=== PATIENT | male | born 1960 | race Caucasian/White ===

== ENCOUNTER 2017-05-21 09:58 | Emergency (ER) | payer BC, MEDICAID ==
--- NOTE | 2017-05-21 10:19 | Emergency Department Record ---
History of Present Illness - General Chief Complaint: Shortness of breath Stated Complaint: SHORT OF BREATH Time Seen by Provider: 05/21/17 10:19 Source: Patient Mode of Arrival: Ambulatory Limitations: No limitations - History of Present Illness Initial Comments: The patient is here due to CORINNA, HENAO and a dry cough for about 3 days. He denies any sputum, fever, chills, but has been quite weak lately. The patient states he did have about an hour of vague chest pain about 3 days ago while resting but it was not associated with any new SOB, CORINNA, sweating, or nausea. He denies any heart issues and has had no CP with exertion. The patient has COPD and does use 3 inhallers at home. MD Complaint: Cough, Shortness of breath Onset/Timin -: Days(s) Improves With: Bronchodilators Worsens With: Exertion Known History Of: COPD Treatments Prior to Arrival: Bronchodilator Treatment Prior to Arrival Comment:: inhalers - Related Data Home Oxygen Therapy: No Home Medications Medication Instructions Recorded Confirmed Last Taken Albuterol Sulfate [Ventolin Hfa] 2 puff INH QID PRN 05/21/17 05/21/17 05/21/17 Fluticasone/Salmeterol [Advair 1 each PO DAILY 05/21/17 05/21/17 05/21/17 250-50 Diskus] Ranitidine HCl 150 mg PO BID 05/21/17 05/21/17 05/21/17 Tiotropium [place] [Spiriva] 1 each INH DAILY 05/21/17 05/21/17 05/21/17 Previous Rx's Medication Instructions Recorded Doxycycline Monohydrate [Mondoxyne 100 mg PO BID #20 capsule 05/21/17 Nl] Prednisone [Prednisone 20Mg] 40 mg PO DAILY #8 tab 05/21/17 Allergies Allergy/AdvReac Type Severity Reaction Status Date / Time Sulfa (Sulfonamide Allergy PT UNSURE Verified 05/21/17 10:05 Antibiotics) OF REACTION Travel Screening - Travel/Exposure Within Last 30 Days Have you traveled within the last 30 days?: No - Travel/Exposure Within Last Year Have you traveled outside the [place] in the last year?: No - Additonal Travel Details Have you been exposed to anyone with a communicable illness?: No - Travel Symptoms Symptom Screening: None Review of Systems Constitutional: Reports: Malaise. Denies: Chills, Fever Eyes: Denies: Eye discharge ENT: Reports: Congestion Respiratory: Reports: Cough, Dyspnea. Denies: Hemoptysis, Stridor, Wheezes Cardiovascular: Denies: Arrhythmia, Chest pain Endocrine: Reports: Fatigue Gastrointestinal: Denies: Diarrhea, Vomiting Genitourinary: Denies: Dysuria Musculoskeletal: Denies: Arthralgia Past Medical History - SOCIAL HISTORY Smoking Status: Former smoker Alcohol Use: Occasional Drug Use: None - RESPIRATORY Hx Respiratory Disorders: Yes Hx COPD: Yes - CARDIOVASCULAR Hx Cardio Disorders: No - NEURO Hx Neuro Disorders: No - GI Hx GI Disorders: Yes Hx Reflux: Yes - Hx Genitourinary Disorders: No - ENDOCRINE Hx Endocrine Disorders: No - MUSCULOSKELETAL Hx Musculoskeletal Disorders: No - PSYCH Hx Psych Problems: No - HEMATOLOGY/ONCOLOGY Hx Hematology/Oncology Disorders: No Family Medical History Any Significant Family History?: No Physical Exam - General General Appearance: Alert, Oriented x3, Cooperative, No acute distress - Head Head exam: Atraumatic, Normocephalic, Normal inspection - Eye Eye exam: Normal appearance, PERRL - ENT Throat exam: Normal inspection. negative: Tonsillar erythema, Tonsillar exudate - Neck Neck exam: Normal inspection, Full ROM. negative: Tenderness - Respiratory Respiratory exam: Decreased breath sounds. negative: Normal lung sounds bilaterally, Rhonchi, Stridor, Wheezes - Cardiovascular Cardiovascular Exam: Regular rate, Normal rhythm, Normal heart sounds - GI/Abdominal GI/Abdominal exam: Soft, Normal bowel sounds. negative: Tenderness - Extremities Extremities exam: Normal inspection, Full ROM, Normal capillary refill. negative: Tenderness - Neurological Neurological exam: Alert, Normal gait. negative: Abnormal gait, Motor sensory deficit Course Vital Signs 05/21/17 10:09 Temperature 97.9 F Pulse Rate 62 Respiratory 20 Rate Blood Pressure 130/95 Pulse Ox 100 - Reevaluation(s) Reevaluation #1: The patient is doing much better at this time. His CORINNA and SOB have resolved and he is able to get up and walk with no difficulty or SOB or pain. I explained to him that his tests do appear WNL's and that I do believe we can discharge him on an oral Abx along with a short course of oral steroids. He is to see his PCP later this week for further eval. On exam his lungs are clear with no wheezing and his ambulatory RA biox is 98%. 05/21/17 12:31 05/21/17 12:34 Medical Decision Making - Data Complexity MDM Data: Labs Ordered and/or Reviewed, X-Ray Ordered and/or Reviewed, EKG Ordered and/or Reviewed - Lab Data Result diagrams: 05/21/17 10:36 05/21/17 10:36 - EKG Data -: EKG Interpreted by Me EKG: No Acute Changes, Normal EKG - Radiology Data Radiology results: Report reviewed (CXR: COPD, No acute changes per Rad.) Disposition Disposition: Discharge Clinical Impression: COPD exacerbation Disposition: Home, Self-Care Condition: (1) Good Instructions: Dyspnea (ED) Additional Instructions: Please continue your home inhallers and take the Doxycycline and Prednisone as directed. Please see your PCP later this week for recheck. Return to the ER for any increased cough, any worsening SOB, CORINNA, or any chest pain. Prescriptions: Doxycycline Monohydrate [Mondoxyne Nl] 100 mg PO BID #20 capsule Prednisone [Prednisone 20Mg] 40 mg PO DAILY #8 tab Forms: Patient Portal Access Time of Disposition: 12:35 Quality - Quality Measures Quality Measures: N/A - Blood Pressure Screening View Details: Yes Blood Pressure Classification: Hypertensive Reading Systolic Measurement: 130 Diastolic Measurement: 95 Screening for High Blood Pressure: < Pre-Hypertensive BP, F/U Documented > [ G8950] Pre-Hypertensive Follow-up Interventions: Follow-up with rescreen every year.
[2017-05-21] MEDS ORDERED: METHYLPREDNISOLONE PF 125MG/VIAL IVP ONE (10:24)
[2017-05-21] MEDS ORDERED: IPRATROPIUM/ALBUTEROL (0.5MG/3MG) NEB INH ONE (10:24)
[2017-05-21 10:58] LABS: BASO % 0.5 % (0-6); GRAN % 39.6 % (47-80); HEMATOCRIT 43.3 % (42.0-52.0); HEMOGLOBIN 14.9 gm/dl (14.0-18.0); LYMPH % 49.3 % (16-45); MEAN CELL VOLUME 87.7 fl (81-97); MEAN CORPUSCULAR HEMOGLOBIN 30.2 pg (27-33); MEAN CORPUSCULAR HGB CONC 34.4 g/dl (32-36); MEAN PLATELET VOLUME 8.4 fl (7.4-10.4); MONO % 9.6 % (0-9); PLATELET COUNT 383 K/uL (130-400); RED BLOOD COUNT 4.94 M/uL (4.40-5.70); RED CELL DISTRIBUTION WIDTH 12.5 % (11.5-14.5); WHITE BLOOD COUNT W/O DIFF 5.9 K/uL (4.2-12.2)
[2017-05-21 11:12] LABS: ANION GAP 13.2 (7-16); BLOOD UREA NITROGEN 11 mg/dL (9-20); CARBON DIOXIDE 25.8 mmol/L (22-30); CREATINE PHOSPHOKINASE 56 U/L (55-170); EST GLOMERULAR FILTRATION RATE > 60 ml/min; GLUCOSE,RANDOM 99 mg/dL (70-110)
[2017-05-21 11:24] LABS: CKMB 0.4 ug/L (0-6)
[2017-05-21 11:26] LABS: TROPONIN I < 0.012 ng/mL (0.00-0.034)
[2017-05-21 12:00] LABS: D-DIMER 0.27 mg/L FEU (0-0.59); INR 1.05; PARTIAL THROMBOPLASTIN TIME 28.2 SECONDS (24.5-39.1); PROTHROMBIN TIME (PATIENT) 11.3 SECONDS (9.5-12.1)
[2017-05-21] MEDS ORDERED: ALBUTEROL SULFATE (0.083%) 2.5 MG/3 ML NEB INH ONE (12:02)
--- NOTE | 2017-05-22 08:01 | RADIOLOGY REPORT ---
EXAM: CHEST, TWO VIEWS HISTORY: CHEST PAIN. TECHNIQUE: Frontal and lateral views of the chest were obtained. Comparison: None. FINDINGS: The heart size is normal. Atheromatous change of the thoracic aorta. Underlying emphysema with biapical pleural thickening and scar formation. The lungs are otherwise clear. No pneumothorax. IMPRESSION: EMPHYSEMA. BIAPICAL PLEURAL THICKENING AND SCAR FORMATION. JOB NUMBER: [id number] MTDD
== END 2017-05-21 12:45 | disposition home or self-care (01) ==
LOC: ER 09:58
DX: J44.1 Chronic obstructive pulmonary disease with (acute) exacerbation (principal); R05 Cough; R07.9 Chest pain, unspecified; R06.00 Dyspnea, unspecified; F41.9 Anxiety disorder, unspecified; F43.0 Acute stress reaction; Z87.891 Personal history of nicotine dependence
CPT/HCPCS: 71020; 80048; 82550; 82553; 84484; 85025; 85379; 85610; 85730; 93005; 93010; 94640; 96374; 99282; 99284; J2930; J7613

== ENCOUNTER 2017-07-10 10:56 | Emergency (ER) | payer BC ==
[2017-07-10] MEDS ORDERED: IPRATROPIUM/ALBUTEROL (0.5MG/3MG) NEB INH ONE ×2 (11:11→13:03)
[2017-07-10] MEDS ORDERED: METHYLPREDNISOLONE PF 125MG/VIAL IVP ONE (11:11)
[2017-07-10] MEDS ORDERED: AZITHROMYCIN 500 MG TABLET PO ONE (11:11)
--- NOTE | 2017-07-10 11:16 | Emergency Department Record ---
History of Present Illness - General Chief Complaint: Shortness of breath Stated Complaint: SOB/CHEST DISCOMFORT/COUGHING Time Seen by Provider: 07/10/17 11:10 Source: Patient Mode of Arrival: Wheelchair Limitations: No limitations - History of Present Illness Initial Comments: 56 yo male presents with shortness of breath. He states he has COPD and is chronically short of breath. Over the last 4 days his breathing difficulties have increased with a non productive cough. He feels the need to bring up sputum but he is unable to do so at this time. No fever. No chest pain except with cough. No leg swelling. He has not seen a pulmonology to date. He is not on home oxygen. No rash. No abdominal pain, nausea, vomiting, or diarrhea. He has pain in his right shoulder with lifting. MD Complaint: Cough, Shortness of breath Onset/Timin -: Week(s) Radiation: Right arm Severity scale (1-10): 3 Quality: Aching, Throbbing Consistency: Constant Improves With: Nothing Worsens With: Coughing, Exertion, Inspiration Known History Of: COPD Context: Recent URI Associated Symptoms: Chest pain, Cough Treatments Prior to Arrival: None - Related Data Previous Rx's Medication Instructions Recorded Azithromycin [Zithromax] 250 mg PO DAILY #4 tab 07/10/17 Ondansetron [Zofran Odt] 4 mg PO Q8H #20 tab.rapdis 07/10/17 Prednisone [Prednisone 20Mg] 20 mg PO BID #10 tab 07/10/17 Allergies Allergy/AdvReac Type Severity Reaction Status Date / Time Sulfa (Sulfonamide Allergy PT UNSURE Verified 05/21/17 14:50 Antibiotics) OF REACTION Travel Screening - Travel/Exposure Within Last 30 Days Have you traveled within the last 30 days?: No Review of Systems Constitutional: Denies: Chills, Fever, Malaise, Weakness Eyes: Denies: Eye discharge, Eye pain, Photophobia, Vision change ENT: Reports: Congestion. Denies: Throat pain Respiratory: Reports: Cough, Dyspnea, Wheezes. Denies: Hemoptysis Cardiovascular: Denies: Chest pain, Palpitations, Syncope Endocrine: Denies: Fatigue Gastrointestinal: Denies: Abdominal pain, Diarrhea, Nausea, Vomiting Genitourinary: Denies: Dysuria, Frequency, Hematuria Musculoskeletal: Denies: Arthralgia, Back pain, Myalgia, Neck pain Skin: Denies: Bruising, Change in color, Rash Neurological: Denies: Confusion, Headache, Numbness, Weakness Psychiatric: Denies: Anxiety Hematological/Lymphatic: Denies: Blood Clots, Easy bleeding, Easy bruising, Swollen glands Past Medical History - SOCIAL HISTORY Smoking Status: Former smoker - RESPIRATORY Hx Respiratory Disorders: Yes Hx COPD: Yes - CARDIOVASCULAR Hx Cardio Disorders: No - NEURO Hx Neuro Disorders: No - GI Hx GI Disorders: Yes Hx Reflux: Yes - Hx Genitourinary Disorders: No - ENDOCRINE Hx Endocrine Disorders: No - MUSCULOSKELETAL Hx Musculoskeletal Disorders: No - PSYCH Hx Psych Problems: No - HEMATOLOGY/ONCOLOGY Hx Hematology/Oncology Disorders: No Family Medical History Any Significant Family History?: No Physical Exam - General General Appearance: Alert, Oriented x3, Cooperative, No acute distress Limitations: No limitations - Head Head exam: Normal inspection - Eye Eye exam: Normal appearance, PERRL. negative: Conjunctival injection, Periorbital swelling - ENT ENT exam: Normal exam, Mucous membranes moist Ear exam: Normal external inspection Nasal Exam: Normal inspection Mouth exam: Normal external inspection Teeth exam: Normal inspection - Neck Neck exam: Normal inspection, Full ROM. negative: Tenderness - Respiratory Respiratory exam: Chest wall tenderness, Decreased breath sounds, Prolonged expiratory, Rhonchi, Wheezes. negative: Normal lung sounds bilaterally, Accessory muscle use, Respiratory distress - Cardiovascular Cardiovascular Exam: Regular rate, Normal rhythm, Normal heart sounds - GI/Abdominal GI/Abdominal exam: Soft. negative: Tenderness - Rectal Rectal exam: Deferred - exam: Deferred - Extremities Extremities exam: Normal inspection, Normal capillary refill, Tenderness ( tender right shoulder pain with abduction). negative: Full ROM, Pedal edema - Back Back exam: Reports: Normal inspection. Denies: CVA tenderness (R), CVA tenderness (L) - Neurological Neurological exam: Alert, Normal gait, Oriented X3, Reflexes normal - Psychiatric Psychiatric exam: Normal affect, Normal mood - Skin Skin exam: Dry, Intact, Normal color, Warm Course Vital Signs 07/10/17 10:58 Temperature 98.0 F Pulse Rate 78 Respiratory 22 Rate Blood Pressure 125/82 Pulse Ox 97 - Reevaluation(s) Reevaluation #1: vitals reviewed No hypoxia, tachycardia or fever. 07/10/17 11:16 EKG 10:55 NSR, rate 78, intervals normal, axis normal, ST normal, no significant changes from 05/21/17 07/10/17 11:18 Reevaluation #2: No acute changes on the labs The CXR was reviewed by me. CW COPD. No acute infiltrate Humerus reviewed. No acute process 07/10/17 12:07 96% on RA HR 84 07/10/17 12:35 Medical Decision Making - Lab Data Result diagrams: 07/10/17 11:10 07/10/17 11:10 Disposition Disposition: Discharge Clinical Impression: COPD exacerbation Condition: (1) Good Instructions: COPD (Chronic Obstructive Pulmonary Disease) (ED) Additional Instructions: Call your doctor for close follow up after this ER visit Return if worse, fever, short of breath Prescriptions: Azithromycin [Zithromax] 250 mg PO DAILY #4 tab Ondansetron [Zofran Odt] 4 mg PO Q8H #20 tab.rapdis Prednisone [Prednisone 20Mg] 20 mg PO BID #10 tab Forms: Patient Portal Access Time of Disposition: 12:38 Quality - Quality Measures Quality Measures: N/A - Blood Pressure Screening Does Patient Have Any of the Following: No Blood Pressure Classification: Pre-Hypertensive BP Reading Systolic Measurement: 125 Diastolic Measurement: 82 Screening for High Blood Pressure: < Pre-Hypertensive BP, F/U Documented > [ G8950] Pre-Hypertensive Follow-up Interventions: Referral to alternative/primary care provider.
[2017-07-10 11:32] LABS: BASO % 0.3 % (0-6); EOS % 0.6 % (0-6); GRAN % 68.1 % (47-80); HEMATOCRIT 43.4 % (42.0-52.0); HEMOGLOBIN 14.7 gm/dl (14.0-18.0); LYMPH % 23.6 % (16-45); MEAN CELL VOLUME 89.1 fl (81-97); MEAN CORPUSCULAR HEMOGLOBIN 30.2 pg (27-33); MEAN CORPUSCULAR HGB CONC 33.9 g/dl (32-36); MEAN PLATELET VOLUME 8.6 fl (7.4-10.4); MONO % 7.4 % (0-9); PLATELET COUNT 401 K/uL (130-400); RED BLOOD COUNT 4.87 M/uL (4.40-5.70); RED CELL DISTRIBUTION WIDTH 12.5 % (11.5-14.5); WHITE BLOOD COUNT W/O DIFF 8.9 K/uL (4.2-12.2)
[2017-07-10 11:48] LABS: ALB/GLOB RATIO 1.7 (1.1-1.8); ALBUMIN 4.8 g/dL (4.0-5.0); ALKALINE PHOSPHATASE 86 U/L (40-129); ALT/SGPT 13 U/L (<41); AST/SGOT 17 U/L (10.0-50.0); BLOOD UREA NITROGEN 24.6 mg/dL (12.6-42.6); CREATININE 0.9 mg/dL (0.7-1.2); EST GLOMERULAR FILTRATION RATE > 60 mL/min; GLUCOSE,RANDOM 106 mg/dL (74-109); TOTAL PROTEIN 7.7 g/dL (6.6-8.7)
[2017-07-10] MEDS ORDERED: ONDANSETRON HCL IV 4 MG/2 ML VIAL IVP ONE (12:46)
--- NOTE | 2017-07-10 14:57 | RADIOLOGY REPORT ---
EXAM: CHEST, TWO VIEWS HISTORY: MIDLINE CHEST DISCOMFORT WITH DIFFICULTY IN BREATHING FOR ONE WEEK. COPD. DRY COUGH. TECHNIQUE: Upright PA and lateral views of the chest were obtained. Comparison: Two view chest radiographic examination dated 05/21/17. FINDINGS: The heart is not enlarged and the pulmonary vasculature is nondilated. The lungs remain hyperinflated consistent with COPD. Biapical pleural and parenchymal scarring again noted. While no gross lung consolidation is seen, the vasculature at the posterior lung base level on the lateral view appears slightly less defined than on the prior examination and minor air space disease at this level cannot be excluded. No costophrenic angle blunting or pneumothorax. IMPRESSION: 1. HYPERINFLATION OF THE LUNGS REDEMONSTRATED CONSISTENT WITH COPD. STABLE BIAPICAL LUNG SCARRING. 2. NO DEFINITE EVIDENCE OF AN ACUTE PULMONARY PROCESS THOUGH ON THE LATERAL VIEW THE VASCULATURE AT THE POSTERIOR LUNG BASE APPEARS SLIGHTLY LESS DEFINED AND WHILE THIS MAY RELATE TO DIFFERENCES IN TECHNIQUE, MINIMAL AIR SPACE DISEASE AT THIS LEVEL WOULD BE DIFFICULT TO EXCLUDE. JOB NUMBER: [id number] [facility]
--- NOTE | 2017-07-10 15:06 | RADIOLOGY REPORT ---
EXAM: RIGHT HUMERUS, TWO VIEWS HISTORY: PAIN IN ANTEROLATERAL PROXIMAL ASPECT OF THE RIGHT HUMERUS FOR ONE MONTH WITH PAIN WORSENING DURING USE OF ARM. TECHNIQUE: AP and lateral views of the right humerus were obtained. Comparison: Same day two views of the chest. Encounter: Initial. FINDINGS: There is normal bone mineralization. No acute fracture, dislocation , or destructive bone lesion is seen. There are minor degenerative changes of the right acromioclavicular joint and medial compartment of the elbow. No periarticular erosion. No focal soft tissue abnormality. IMPRESSION: NO ACUTE BONE NOR JOINT ABNORMALITY. MINOR DEGENERATIVE CHANGES. [facility]BER: [id number] [facility]
== END 2017-07-10 14:17 | disposition home or self-care (01) ==
LOC: ER 10:56
DX: J44.1 Chronic obstructive pulmonary disease with (acute) exacerbation (principal); M79.621 Pain in right upper arm; R06.02 Shortness of breath; Z87.891 Personal history of nicotine dependence
CPT/HCPCS: 99284 ×2; 96374; 96375; 85025; 80053; 71020; 73060; 94640 ×2; 93005; 93010; J2405; J2930

== ENCOUNTER 2017-08-20 12:42 | Emergency (ER) | payer BC ==
--- NOTE | 2017-08-20 12:59 | Emergency Department Record ---
History of Present Illness - General Chief Complaint: Shortness of breath Stated Complaint: CORINNA Time Seen by Provider: 08/20/17 12:51 Source: Patient Mode of Arrival: Ambulatory Limitations: No limitations - History of Present Illness Initial Comments: The patient has a hx of COPD and now has a 2 day hx of dry cough, mild nasal congestion, mild SOB but no CP, sweating, or fever. He feels like he is catching a cold. He has had similar problems in the past with COPD. MD Complaint: Cough, Shortness of breath Onset/Timin -: Days(s) Consistency: Constant Improves With: Nothing Worsens With: Nothing Known History Of: COPD Associated Symptoms: Cough Treatments Prior to Arrival: None - Related Data Previous Rx's Medication Instructions Recorded Azithromycin [Zithromax] 250 mg PO ASDIR #6 tab 08/20/17 Prednisone [Prednisone 20Mg] 40 mg PO DAILY #8 tab 08/20/17 Allergies Allergy/AdvReac Type Severity Reaction Status Date / Time Sulfa (Sulfonamide Allergy PT UNSURE Verified 05/21/17 14:50 Antibiotics) OF REACTION Travel Screening - Travel/Exposure Within Last 30 Days Have you traveled within the last 30 days?: No Review of Systems Constitutional: Reports: Malaise. Denies: Chills, Fever Eyes: Denies: Eye discharge ENT: Reports: Congestion Respiratory: Reports: Cough, Dyspnea. Denies: Hemoptysis Cardiovascular: Denies: Chest pain Past Medical History - SOCIAL HISTORY Smoking Status: Former smoker Alcohol Use: None Drug Use: None - RESPIRATORY Hx Respiratory Disorders: Yes Hx COPD: Yes - CARDIOVASCULAR Hx Cardio Disorders: No - NEURO Hx Neuro Disorders: No - GI Hx GI Disorders: Yes Hx Reflux: Yes - Hx Genitourinary Disorders: No - ENDOCRINE Hx Endocrine Disorders: No - MUSCULOSKELETAL Hx Musculoskeletal Disorders: No - PSYCH Hx Psych Problems: No - HEMATOLOGY/ONCOLOGY Hx Hematology/Oncology Disorders: No Family Medical History Any Significant Family History?: No Physical Exam - General General Appearance: Alert, Oriented x3, Cooperative, No acute distress - Head Head exam: Atraumatic, Normocephalic, Normal inspection - Eye Eye exam: Normal appearance, PERRL, EOMI - ENT Throat exam: Normal inspection. negative: Tonsillar erythema, Tonsillar exudate - Neck Neck exam: Normal inspection, Full ROM. negative: Tenderness - Respiratory Respiratory exam: Normal lung sounds bilaterally. negative: Accessory muscle use, Decreased breath sounds, Rales, Respiratory distress, Rhonchi, Stridor, Wheezes - Cardiovascular Cardiovascular Exam: Regular rate, Normal rhythm, Normal heart sounds - GI/Abdominal GI/Abdominal exam: Soft, Normal bowel sounds. negative: Tenderness - Extremities Extremities exam: Normal inspection, Full ROM, Normal capillary refill. negative: Tenderness - Neurological Neurological exam: Alert, Normal gait. negative: Abnormal gait, Motor sensory deficit Course Vital Signs 08/20/17 12:44 Temperature 97.5 F L Pulse Rate 78 Respiratory 20 Rate Blood Pressure 121/87 Pulse Ox 98 - Reevaluation(s) Reevaluation #1: The patient is doing better at this time. He is breathing normally with less coughing and feels well enough for home. On exam his lungs are clear with no wheezing. 08/20/17 14:13 Medical Decision Making - Data Complexity MDM Data: Labs Ordered and/or Reviewed, X-Ray Ordered and/or Reviewed - Lab Data Result diagrams: 08/20/17 12:50 08/20/17 12:50 - Radiology Data Radiology results: Report reviewed (CXR; COPD, O/W neg.) Disposition Disposition: Discharge Clinical Impression: COPD exacerbation Disposition: Home, Self-Care Condition: (1) Good Instructions: COPD (Chronic Obstructive Pulmonary Disease) (ED) Additional Instructions: Continue the Prednisone tomorrow and take the Zpak as directed. Please see your PCP for recheck later this week if not better. Return to the ER for any increased trouble breathing, any pain, fever, or worse coughing. Prescriptions: Azithromycin [Zithromax] 250 mg PO ASDIR #6 tab Prednisone [Prednisone 20Mg] 40 mg PO DAILY #8 tab Forms: Patient Portal Access Time of Disposition: 14:15 Quality - Quality Measures Quality Measures: N/A - Blood Pressure Screening View Details: Yes Does Patient Have Any of the Following: No Blood Pressure Classification: Normal BP Reading Systolic Measurement: 112 Diastolic Measurement: 74 Screening for High Blood Pressure: < Normal BP, F/U Not Required > [G8783]
[2017-08-20] MEDS: IPRATROPIUM/ALBUTEROL (0.5MG/3MG) NEB INH ONE (13:05)
[2017-08-20 13:06] LABS: BASO % 0.2 % (0-6); EOS % 0.1 % (0-6); GRAN % 59.4 % (47-80); HEMATOCRIT 41.8 % (42.0-52.0); HEMOGLOBIN 14.2 gm/dl (14.0-18.0); LYMPH % 32.9 % (16-45); MEAN CELL VOLUME 88.9 fl (81-97); MEAN CORPUSCULAR HEMOGLOBIN 30.2 pg (27-33); MEAN PLATELET VOLUME 8.3 fl (7.4-10.4); MONO % 7.4 % (0-9); PLATELET COUNT 441 K/uL (130-400); RED CELL DISTRIBUTION WIDTH 12.5 % (11.5-14.5); WHITE BLOOD COUNT W/O DIFF 8.6 K/uL (4.2-12.2)
[2017-08-20] MEDS: METHYLPREDNISOLONE PF 125MG/VIAL IVP ONE (13:13)
[2017-08-20 13:26] LABS: BLOOD UREA NITROGEN 12 mg/dL (6-20); CREATININE 0.9 mg/dL (0.7-1.2); EST GLOMERULAR FILTRATION RATE > 60 mL/min; GLUCOSE,RANDOM 104 mg/dL (74-109)
--- NOTE | 2017-08-21 09:29 | RADIOLOGY REPORT ---
EXAM: CHEST, TWO VIEWS HISTORY: DIFFICULTY BREATHING. TECHNIQUE: Frontal and lateral views of the chest were obtained. Comparison: 07/10/17 chest. FINDINGS: The heart size is normal. Severe underlying emphysematous change. No pneumothorax. Biapical pleural thickening. The lungs are otherwise clear. IMPRESSION: SEVERE UNDERLYING EMPHYSEMA. NO ACUTE CARDIOPULMONARY PROCESS. JOB NUMBER: [id number] MTDD
== END 2017-08-20 14:36 | disposition home or self-care (01) ==
LOC: ER 12:42
DX: J44.1 Chronic obstructive pulmonary disease with (acute) exacerbation (principal); R06.02 Shortness of breath; Z87.891 Personal history of nicotine dependence
CPT/HCPCS: 71020; 80048; 85025; 94640; 96374; 99284; J2930